=== PATIENT | male | born 1950 | race Caucasian/White ===

== ENCOUNTER 2017-01-14 15:14 | Day surgery (SDC) | payer BC ==
[~2017-01-14 15:14] MED LIST: Gentamicin ADULT (*) 160 MG in NS 0.9% 100 ML* 100 ML IVPB ONE
[2017-01-14] MEDS ORDERED: Buffered Lidocaine 0.9% SYRIN* 5 ML/SYR SYRINGE ONE (15:27)
[2017-01-14] MEDS ORDERED: Levofloxacin 500 MG IVPREMIX(* 500 MG/100 ML BAG IVPB ONE (15:27)
--- OUTSIDE RECORDS SUMMARY | 2017-01-14 16:34 | XMS REPORT ---
:1950 External Reference #:[id number] Author Organization [facility] Address [address] [place] [address] Phone [phone] Care Team Providers Name Role Phone HCP given Primary Care Physician Unavailable Payers Type Date Identification Numbers Payment Provider Subscriber Health Maintenance Policy Number: [id number] [place] Rodriguez [facility] (O) PayID: [id number] [address] [place] [address] Problems Date Description Provider Status Onset: 09/12/2007 Allergic rhinitis Benigno Ceballos M.D. Active Onset: 09/12/2007 History of polyp of colon Benigno Ceballos M.D. Active Onset: 05/09/2013 Herpes simplex without complication Benigno Ceballos M.D. 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 Cigarette Use 12/26/2013 Never Smoked Cigarettes Cigars 04/13/2010 Quit - Age Unknown in 2009 Smoking Non Smoker / No Tobacco Exercise Type/Frequency Does not exercise exc for what he gets on the job Allergies, Adverse Reactions, Alerts Date Description Reaction Status Severity Comments 09/12/2007 Penicillin active Rashes in childhood Medications Medication Date Status Form Strength Qnty SIG Indications Ordering Provider Xyzal 11/20/ Active Tablets 5mg 30tab 1 po daily Unknown 2015 s Valacyclovir 04/26/ Active Tablets 500mg 16tab take 4 B00.9 Silcoff, HCL 2014 s tablets by catherine Pelaez every M.D. 12 hours x2 doses; at first sign of cold sores starting Ibuprofen 11/09/ Active Tablets 800mg 90tab Take 1 M54.5 Silcoff, 2011 s Tablet By Benigno, Catherine Three M.D. Times Daily as Needed For Pain Fluticasone 10/05/ Active Suspension 50mcg/Act 3unit 2 sprays Unknown Propionate 2011 s into each nostril qd for nasal congestion. keith allergies. rinse mouth post. as needed Meclizine HCL 12/26/ Hx Tablets 25mg 60tab take 1 386.11 Silcoff, 2013 - s tablet by Benigno, 01/25/ mouth every M.D. 2013 6 hours as needed for dizziness Valacyclovir 05/09/ Hx Tablets 1gm 8tabs take two 054.9 Silcoff, HCL 2013 - tablets by Benigno, 04/26/ mouth every M.D. 2014 12 hours for 2 doses. start at onset of symptoms for cold sores PT For Right Hx evaluate 719.41 Silcoff, Shoulder Pain 2012 - and treat, Benigno, 05/08/ modalities M.D. 2014 prn, instruct in hep Lotemax 12/25/ Hx Ointment 0.5% apply up to Huey, 2012 - 2x/day to Tracy, 12/17/ skin around OD 2014 eyes as needed Metaxalone 11/09/ Hx Tablets 800mg 30tab 1 by mouth 724.2 Lin 2011 - s three times Benigno, 12/17/ a day as M.D. 2015 needed for back pain Sulfamethoxazo 10/11/ Hx Tablets 800-160mg 20tab 1 po bid 462 Alban rae/Trimethopri 2011 - s A. m DS 10/21/ Klepayordan, 2011 M.D. 465.9 Clarithromycin 05/06/2011 - Hx Tablets 500mg 20tabs 1 tab bid x 461.0 Silcoff, 05/16/2011 10 days Cira Pelaez Nasonex 05/05/2011 - Hx Suspension 50mcg/A as directed Unknown 10/06/2011 ct Azelastine HCL 01/04/2011 - Hx Solution 0.05% 18ml 1 gt bid prn Unknown 04/25/2013 to affected eye(s); doses should be spaced by at least 6hrs Clarithromycin 04/13/2010 - Hx Tablets 250mg 20tabs 1 po bid 462 Alban A. 04/23/2010 Cira Barajas PT For L Arm 10/31/2009 - Hx evaluate and Silcoff, Pain 11/09/2011 Benigno hager modalities M.D. prn Ibuprofen 09/26/2009 - Hx Tablets 800mg 30tabs 1 po tid prn 719.41 Silcoff, 11/09/2011 for shoulder gordy Pelaez M.D. Clindamycin HCL 04/11/2009 - Hx Capsules 300mg 40caps 1 po q6h for 525.9 Silcoff, 04/21/2009 10 days Cira Pelaez Ibuprofen 04/11/2009 - Hx Tablets 800mg 30tabs 1 po tid prn 525.9 Silcoff, 04/21/2009 for tooth gordy Pelaez M.D. Nasonex 04/10/2009 - Hx Suspension 50mcg/A 2 sprays 381.81 Unknown 02/16/2010 ct each nostril qd 477.9 Fexofenadine HCL 04/10/2009 - Hx Tablets 180mg 1 po qd for 477.9 Unknown 02/16/2010 allergies Promethazine-Cod 02/11/2009 - Hx Syrup 6.25-10m 250 5 ml po q8h 786.2 aracelis Mccartney 02/17/2010 g/5ML ml prn for cough Irene Rosado 02/11/2009 - Hx Capsules 100mg 40c one to 2 786.2 Bib 02/16/2010 aps tablets po tid Irene MATAMOROS prn for cough suppression PT For Neck Pain 11/26/2008 - Hx please 723.1 Silcorich, 11/09/2011 evaluate and madan Pelaez M.D. instruct in hep, modalities prn. Skelaxin 11/26/2008 - Hx Tablets 800mg 30t 1 po tid prn 723.1 Silcoff, 12/10/2008 abs for neck pain Cira Pelaez Flonase 03/28/2008 - Hx Suspension 50mcg/Ac 3un 2 sprays each 381.81 Silcoff, 04/10/2009 t its nostril daily Benigno as needed for M.D. nasal congestion and allergies 477.9 Veramyst 12/27/2007 - Hx Suspension 27.5mcg/[place] 1bottle 2 Sprays 381.81 Silcoff, 03/28/2008 Into Each Benigno, Nostril qd M.DLuda For Nasal Congestion and allergies 477.9 Claritin 09/12/2007 - Hx Tablets 10mg 90tabs 1 PO qd prn 477.9 Silcoff, Reditabs 04/10/2009 Dispers For Allergies Cira Pelaez Denavir 09/12/2007 - Hx Cream 1% 1.5gm 4 Apply Q2 054.9 Silcoff, 05/09/2013 Hours While Cira Pelaez Awake X Days At First Symptom Of Developing Cold Sore Medications Administered in Office Medication Date Status Form Strength Qnty SIG Indications Ordering Provider TB Intradermal Administered Injection Unknown Test 008 Immunizations CPT Code Status Date Vaccine Lot # [id number] Given 12/17/2014 Influenza Virus Vaccine, Quadrivalent, Split, [id number] Preservative Free 33239 Given 12/26/2013 Influenza Virus Vaccine, Quadrivalent, Split, [id number] Preservative Free 85803 Given 12/26/2012 Zostavax [id number] 60132 Given 12/26/2012 Flu, Split Virus 3Yrs [id number] 44690 Given 11/10/2011 Flu, Split Virus 3Yrs [id number] 58632 Given 10/07/2011 Adacel or Boostrix, TDaP [id number] 06801 Given 12/25/2007 Flu, Split Virus 3Yrs [id number] Given 01/01/2003 Td Immunization Vital Signs Date Vital Result Comment 01/12/2017 BP Systolic 142 mmHg BP Diastolic 88 mmHg Heart Rate 80 /min reg Respiratory Rate 12 /min not laboured Weight 194.00 lb 03/10/2015 BP Systolic 140 mmHg BP Diastolic 74 mmHg Weight 194.00 lb 12/17/2014 BP Systolic 132 mmHg BP Diastolic 70 mmHg Height 65.50 inches 5'5.50" Weight 197.00 lb BMI (Body Mass Index) 32.3 kg/m2 12/26/2013 BP Systolic 118 mmHg BP Diastolic 64 mmHg BP Systolic Recheck 168 mmHg R arm lying BP Diastolic Recheck 94 mmHg R arm lying Heart Rate 77 /min reg Body Temperature 98.0 F Height 65.5 inches 5'5.50" Weight 193.00 lb BMI (Body Mass Index) 31.6 kg/m2 05/09/2013 BP Systolic 120 mmHg BP Diastolic 90 mmHg Body Temperature 98.3 F Weight 193.00 lb 12/26/2012 BP Systolic 136 mmHg BP Diastolic 80 mmHg Heart Rate 76 /min reg Respiratory Rate 12 /min not laboured Height 65.25 inches 5'5.25" Weight 189.00 lb BMI (Body Mass Index) 31.2 kg/m2 11/10/2011 BP Systolic 120 mmHg BP Diastolic 84 mmHg Height 66.5 inches 5'6.50" Weight 191.00 lb BMI (Body Mass Index) 30.4 kg/m2 10/07/2011 BP Systolic 128 mmHg BP Diastolic 90 mmHg Body Temperature 98.1 F Weight 189.00 lb 05/06/2011 BP Systolic 150 mmHg BP Diastolic 78 mmHg Heart Rate 86 /min Body Temperature 97.9 F Height 67 inches 5'7" Weight 185.00 lb w/shoes BMI (Body Mass Index) 29.0 kg/m2 04/13/2010 BP Systolic 146 mmHg BP Diastolic 80 mmHg Heart Rate 80 /min Respiratory Rate 16 /min Body Temperature 98.0 F 03/25/2010 BP Systolic 132 mmHg BP Diastolic 70 mmHg Heart Rate 78 /min O2 % BldC Oximetry 98 % Height 66.50 inches 5'6.50" Weight 189.00 lb BMI (Body Mass Index) 30.0 kg/m2 Last Menstrual Period 0 04/11/2009 BP Systolic 138 mmHg BP Diastolic 84 mmHg Body Temperature 97.8 F Weight 190.00 lb Last Menstrual Period 0 02/11/2009 BP Systolic 145 mmHg BP Diastolic 88 mmHg Heart Rate 83 /min Body Temperature 98.2 F Weight 183.00 lb Last Menstrual Period 0 11/26/2008 BP Systolic 130 mmHg BP Diastolic 72 mmHg Weight 180.00 lb Last Menstrual Period 0 12/27/2007 BP Systolic 124 mmHg BP Diastolic 76 mmHg Height 66.6 inches 5'6.60" Weight 186.00 lb BMI (Body Mass Index) 29.5 kg/m2 09/12/2007 BP Systolic 110 mmHg BP Diastolic 78 mmHg Height 66.6 inches 5'6.60" Weight 178.00 lb BMI (Body Mass Index) 28.2 kg/m2 Results Test Date Test Result H/L Range Note Laboratory test 12/26/2012 Hepatitis C Nonreactive Nonreactive finding Antibody Laboratory test 10/07/2011 Culture Throat neg finding Rapid Screen Culture Throat neg Laboratory test finding 04/13/2010 Culture Throat Rapid Screen neg Manual Differential 03/25/2010 Polysegmented Neutrophil 66 % 38-83 Band Neutrophil 1 % 0-8 Lymphocyte 22 % Low 25-47 Monocyte 8 % 0-13 Atypical Lymph 3 % 0-6 Absolute Neutrophil Count 7.5 RBC Morphology NORMAL Laboratory test finding 03/25/2010 Troponin-I 0 NG/ML 0-0.06 1 Lipid Profile (Trig/Chol/HDL) 03/25/2010 Triglyceride 96 mg/dL 40-200 Cholesterol 217 mg/dL High Less Than 200 2 High Density Lipoprotein 55 mg/dL 40-60 3 Cholesterol/HDL Ratio 4.34 AVERAGE 1-4.97 Low Density Lipoprotein 147 mg/dL High Less Than 100 4 Laboratory test finding 03/25/2010 TSH 0.91 MIU/ML 0.34-5.60 Comp Metabolic Panel 03/25/2010 Sodium 137 mmol/L 135-145 Potassium 4.3 mmol/L 3.5-5.0 Chloride 105 mmol/L 101-111 Co2 (Carbon Dioxide) 26.0 mmol/L 22-32 Anion Gap 6.0 mmol/L 2-11 5 Glucose 79 mg/dL 70-100 BUN 15 mg/dL 6-24 Creatinine 0.92 mg/dL 0.50-1.40 One Over Creatinine 1.00 BUN/Creatinine Ratio 16.3 8-20 Calcium 9.5 mg/dL 8.1-9.9 Total Protein 7.8 GM/DL 6.2-8.1 Albumin 4.2 GM/DL 3.6-5.4 Globulin 3.6 GM/DL 2-4 Albumin/Globulin Ratio 1.2 1-3 Bilirubin Total 0.7 mg/dL 0.4-1.5 6 Alkaline Phosphatase 76 U/L 39-117 Alt (SGPT) 49 U/L 17-63 Ast (Sgot) 26 U/L 12-42 eGFR Non- 84.8 > 60 eGFR 109.1 > 60 7 CBC With Electronic Diff 03/25/2010 White Blood Count 11.3 CUMM High 4.8- 10.8 Red Cell Count 4.60 CUMM 4.6-6.2 Hemoglobin 14.3 g/dL 14.0-18.0 Hematocrit 42 % 42-52 Mean Corpuscular Volume 92 um3 80-94 Mean Corpuscular Hemoglob 31 pg 27-31 Mean Corpuscular HGB Cone 34 g/dL 32-36 Redcell Distribution WDTH 12 % 10.5-15 Platelet Count 216 CUMM 150-450 Mean Platelet Volume 9.0 um3 7.4-10.4 8 1 New Reference Range and Interpretation effective 11/17/2001 TnI (ng/ml) INTERPRETATION Less Than 0.06 ng/mL NOT SUPPORTIVE OF DIAGNOSIS OF [place] 0.06 - 0.50 ng/ml INDETERMINATE: SUGGEST SERIAL STUDIES IF CLINICALLY INDICATED. Greater than 0.5 ng/mL CONSISTENT WITH DIAGNOSIS OF [place] . 2 CHOLESTEROL INTERPRETATION: Desirable: Less than 200 MG/DL Borderline-High Risk: 200-239 MG/DL High-Risk: 240 MG/DL and over 3 HDL INTERPRETATION: Undesirable: High Risk: Less than 40 MG/DL Desirable: Low Risk: Greater than 60 MG/DL 4 LDL INTERPRETATION: Low Risk Optimal Level: LDL Less than 100 MG/DL Near or Above Optimal: LDL 100-129 MG/DL Borderline High Risk: LDL 130-159 MG/DL High Risk: LDL 160-189 MG/DL Very High Risk: LDL Greater than 189 MG/DL 5 Anion gap measurement may be of limited value in the presence of any alkalosis, especially in a combined acid base disorder. . 6 A metabolite of Naproxen, O-desmethylnaproxen, has been shown to interfere with the Jendrassik-Lacona method for measuring total bilirubin. Samples from patients who have taken Naproxen have shown spurious elevation in total bilirubin levels. 7 Because ethnic data is not always readily available, this report includes an eGFR for both -Americans and non- Americans. The National Kidney Disease Education Program (NKDEP) does not endorse the use of the MDRD equation for patients that are not between the ages of 18 and 70, are , have extremes of body size, muscle mass, or nutritional status, or are non- or non-. According to the National Kidney Foundation, irrespective of diagnosis, the stage of the disease is based on the level of kidney function: Stage Description GFR(mL/min/1.73 m(2)) 1 Kidney damage with normal or decreased GFR 90 2 Kidney damage with mild decrease in GFR 60-89 3 Moderate decrease in GFR 30-59 4 Severe decrease in GFR 15-29 5 Kidney failure <15 (or dialysis) 8 Lymphopenia % Procedures Date CPT Code Description Status Comment 03/17/2011 Colonoscopy Completed 04/12/11: no polyps; diffuse tics L colon; hypertrophied anal papilla (P: 5yr recall, per Dr Hernandez) 2006: 2 more polyps 07/19: 5 polyps removed (1 adenoma, others hyperplastic) 03/25/2010 88556 Oximetry, Single Completed 03/25/2010 20060 Electrocardiogram Complete Completed Encounters Type Date Location Provider CPT E/M Dx Office Visit 01/12/2017 4:15p Main Office Bengino Ceballos M.D. 36823 R10.31 Office Visit 03/10/2015 9:15a Main Office Benigno Ceballos M.D. 65135 Z82.49 F51.02 H81.10 Office Visit 12/17/2014 8:30a Main Office Benigno Ceballos M.D. 72001 Z82.49 Z23 Z41.8 Office Visit 12/26/2013 8:55a Main Office Benigno Ceballos M.D. 90476 386.11 V04.81 V07.2 Office Visit 05/09/2013 9:30a Main Office Benigno Ceballos M.D. 70062 054.9 309.81 Office Visit 12/26/2012 2:00p Main Office Benigno Ceballos M.D. 20872 V70.0 V76.44 V75.9 719.41 v04.81 v05.8 v07.2 Office Visit 11/10/2011 11:15a Main Office Benigno Ceballos M.D. 71454 724.2 V04.81 V07.2 Office Visit 10/07/2011 9:05a Main Office Alban Barajas M.D. 37511 462 465.9 780.79 V65.49 V06.1 V07.2 Office Visit 05/06/2011 10:40a Main Office Korin Craft 19287 461.0 Office Visit 04/13/2010 4:30p Main Office Alban Barajas M.D. 23910 462 786.09 Office Visit 03/25/2010 11:00a Main Office Korin Craft 80914 300.02 786.09 780.4 V77.91 307.49 465.9 Office Visit 04/11/2009 11:00a Main Office Benigno Ceballos M.D. 96121 525.9 Office Visit 02/11/2009 11:30a [place] [address] 465.9 786.2 Office Visit 11/26/2008 4:00p Main Office Benigno Ceballos M.D. 97850 723.1 Office Visit 12/27/2007 2:15p Main Office Benigno Ceballos M.D. 14015 381.81 477.9 Office Visit 09/12/2007 3:30p Main Office Benigno Ceballos M.D. 63429 477.9 V77.91 V76.44 V12.72 054.9 V70.0 Plan of Care 01/12/2017 - Benigno Ceballos M.D.R10.31 Right lower quadrant painNew Xrays:CT, Abdomen and Pelvis w/ ContrastComments:R sided mid to lower abdo pain w/ radiation to his R back. DDx incl constipation, appy, biliary colic. Advised low fat diet for now, don't eat tomorrow until gets instructions re CT wc we are going ot try and arrange for tomorrow. I will get back to him once we have results and go from there. Call back or RTO prn if increasing Sxs.
[2017-01-14] MEDS ORDERED: Iohexol 180 (CONTRAST) 10 ML SDV IV ONE (16:49)
[2017-01-14] MEDS ORDERED: Midazolam* 1 MG/ML 2 ML VIAL (2 MG) ONE (17:01)
[2017-01-14] MEDS ORDERED: Propofol* 10 MG/ML 20 ML BTL IV PUSH ONE (17:17)
[2017-01-14] MEDS ORDERED: fentaNYL* 50 MCG/ML 2 ML VIAL (100 MCG VIAL) ONE (17:17)
[2017-01-14] MEDS ORDERED: Lidocaine 2% PF * 5 ML VIAL ONE (17:17)
[2017-01-14] MEDS ORDERED: oxyCODONE/Acetamin 5/325 MG* TAB PO PRN (17:36)
[2017-01-14] MEDS ORDERED: DiMENhydriNATE IV* 50 MG/ML VIAL IV PUSH PRN (17:36)
[2017-01-14] MEDS ORDERED: Ondansetron INJ* 2 MG/ML VIAL IV PRN (17:36)
[2017-01-14] MEDS ORDERED: fentaNYL* 50 MCG/ML 2 ML VIAL (100 MCG VIAL) IV PRN (17:36)
[2017-01-14] MEDS ORDERED: Tamsulosin CAP* 0.4 MG ONE (18:35)
[2017-01-14] MEDS ORDERED: oxyCODONE/Acetamin 5/325 MG* TAB ONE (19:19)
--- NOTE | 2017-01-14 19:50 | RAD ---
Indication: Right renal calculi. Fluoroscopic services provided for referring physician. 13 seconds of fluoroscopy time was used. 6 spot images demonstrates placement of a right ureteral stent. There is limited opacification of the right ureter. IMPRESSION: Fluoroscopic services provided for referring physician
[2017-01-14 20:34] VITALS: BP 135/78
--- NOTE | 2017-01-15 14:41 | OP ---
CC: Dr. Benigno Ceballos * DATE OF OPERATION: 01/14/17 - [facility] DATE OF : 54 SURGEON: Forrest Fisher MD. ANESTHESIOLOGIST: Atilio Yin MD. ANESTHESIA: General. PRE-OP DIAGNOSES: 1. Right hydronephrosis. 2. Calculus right ureter. POST-OP DIAGNOSES: 1. Right hydronephrosis. 2. Calculus right ureter. OPERATIVE PROCEDURE: Cystoscopy, right retrograde pyelogram, right ureteroscopy and stone extraction, and right stent insertion. COMPLICATIONS: None. OPERATIVE FINDINGS: 1. Enlargement of median lobe of prostate. 2. Marked edema and inflammation right distal ureter secondary to 3 to 4 mm calculus impacted at right ureterovesical junction. STENTS USED: 6-Marshallese stent right ureter. POSTOPERATIVE CONDITION: Stable. INDICATIONS: Atilio Rodriguez is a 66-year-old gentleman who was evaluated for persistent right flank pain and nausea secondary to an obstructing calculus in the right distal ureter. He also has an increased creatinine of 2.27. DESCRIPTION OF PROCEDURE: After induction of general anesthesia the patient was placed in dorsal lithotomy position. Sequential compression devices were in place and functioning. Initial cystoscopy revealed a normal appearing urethra, mild-to- moderate enlargement of the median lobe of the prostate. The bladder was examined. The left orifice appears normal. Surrounding the right orifice there was considerable edema and inflammation noted. A guidewire was introduced into the right ureter. After overcoming the initial resistance the wire was advanced proximally. Retrograde pyelogram revealed fullness of the right collecting system. A 6-Marshallese semirigid ureteroscope was introduced into the right ureter. A 3 to 4 mm calculus was impacted at the ureterovesical junction with considerable edema and inflammation noted. Using a 3 prong grasper this was engaged and removed and sent for analysis. No additional stones were noted. A 6-Marshallese stent was introduced and positioned under fluoroscopy with good proximal and distal positioning obtained. The bladder was emptied. The patient tolerated the procedure satisfactorily and was transferred back to the recovery area in stable condition. [id number]/[facility] #: [id number] MTDD
== END 2017-01-14 20:38 | disposition home or self-care (01) ==
LOC: OR 15:14
PROVIDERS: ATTEND Urology
DX: N13.2 Hydronephrosis with renal and ureteral calculous obstruction (principal); N40.0 Benign prostatic hyperplasia without lower urinary tract symptoms
CPT/HCPCS: 74420; 82365; 88300; A9270-GY; C1876; J1580; J1956; J2250; J2704; J3010

== ENCOUNTER 2017-01-31 11:25 | Day surgery (SDC) | payer BC ==
[~2017-01-31 11:25] MED LIST changes: +Buffered Lidocaine 0.9% SYRIN* 5 ML/SYR SYRINGE INTRADERM ONE; +DiMENhydriNATE IV* 50 MG/ML VIAL IV PUSH PRN; +Famotidine IV* 10 MG/ML 2 ML (20 mg) IV ONE; -Gentamicin ADULT (*) 160 MG in NS 0.9% 100 ML* 100 ML IVPB ONE; +Morphine INJ* 2 MG/ML 1 ML CARPUJECT IV PRN; +PROCHLORPERAZINE INJ 5 MG/ML 2 ML VIAL IV PRN; +Scopolamine 1.5 mg* PATCH TRANSDERM PRN; +fentaNYL* 50 MCG/ML 2 ML VIAL (100 MCG VIAL) IV PRN; +oxyCODONE/Acetamin 5/325 MG* TAB PO PRN
[2017-01-31] MEDS ORDERED: cefTRIAXone(*) 2 GM ADDV.VIAL IVPB ONE (11:43)
[2017-01-31] MEDS ORDERED: Buffered Lidocaine 0.9% SYRIN* 5 ML/SYR SYRINGE ONE (11:43)
[2017-01-31] MEDS ORDERED: Famotidine IV* 10 MG/ML 2 ML (20 mg) ONE (11:43)
[2017-01-31] MEDS ORDERED: fentaNYL* 50 MCG/ML 2 ML VIAL (100 MCG VIAL) ONE (13:04)
[2017-01-31] MEDS ORDERED: KETAMINE HCL* 50 MG/ML 10 ML VIAL ONE (13:05)
[2017-01-31] MEDS ORDERED: Midazolam* 1 MG/ML 10 ML VIAL (10 MG) ONE (13:05)
[2017-01-31] MEDS ORDERED: Levofloxacin 500 MG IVPREMIX(* 500 MG/100 ML BAG IVPB ONE (13:28)
[2017-01-31] MEDS ORDERED: Lidocaine 2% PF * 5 ML VIAL ONE (14:40)
[2017-01-31] MEDS ORDERED: Propofol* 10 MG/ML 20 ML BTL IV PUSH ONE (14:40)
[2017-01-31] MEDS ORDERED: oxyCODONE/Acetamin 5/325 MG* TAB ONE (15:05)
[2017-01-31 15:06] VITALS: BP 143/97
[2017-01-31 15:22] LABS: EGFR Non-African American 48.2 (>60)
--- NOTE | 2017-02-01 06:04 | OP ---
DATE OF OPERATION: 01/31/17 - [facility] DATE OF : 54 SURGEON: Forrest Fisher MD ANESTHESIOLOGIST: Dr. Edwards. ANESTHESIA: General. PRE-OP DIAGNOSES: 1. Right flank pain. 2. History of right ureteral calculus. POST-OP DIAGNOSES: 1. Right flank pain. 2. History of right ureteral calculus. OPERATIVE PROCEDURE: Cystoscopy and right stent removal. INDICATIONS: Atilio Rodriguez is a 66-year-old gentleman who had undergone successful treatment for an obstructing right ureteral calculus. He would like to have the stent removal done under anesthesia. COMPLICATIONS: None. POSTOPERATIVE CONDITION: Stable. DESCRIPTION OF PROCEDURE: After induction of general anesthesia (initial plan was with intravenous sedation, but changed to general). The patient was placed in dorsal lithotomy position. Sequential compression devices were in place and functioning. Initial cystoscopy revealed a normal appearing urethra. The bladder was entered and examined. The stent was seen exiting from the right orifice and was grasped and removed intact without difficulty. The bladder was emptied. The patient tolerated the procedure satisfactorily and was transferred back to the recovery area in stable condition. [id number]/[facility] #: [id number] MTDD
[2017-02-03] MEDS ORDERED: Scopolamine PATCH Remove* 1 NOTE MISC PATCH OFF ONE (06:05)
== END 2017-01-31 15:56 | disposition home or self-care (01) ==
LOC: OR 11:25
PROVIDERS: ATTEND Urology
DX: R10.9 Unspecified abdominal pain (principal); Z46.6 Encounter for fitting and adjustment of urinary device; Z87.442 Personal history of urinary calculi; Z88.0 Allergy status to penicillin; J30.9 Allergic rhinitis, unspecified
CPT/HCPCS: 36415; 82565; 84520; A9270-GY; J0696; J1956; J2250; J2704; J3010